=== PATIENT | male | born 1930 | race Two or more races ===

== ENCOUNTER 2017-10-15 14:02 | Emergency (ER) | payer SELFPAY ==
[2017-10-15 15:05] VITALS: BP 00/00; BMI 18.3
--- NOTE | 2017-10-15 15:06 | PDOC ---
History of Present Illness - General Chief Complaint: Cardiac Arrest Stated Complaint: CARDIAC ARREST Time Seen by Provider: 10/15/17 14:17 - History of Present Illness Initial Comments: 10/15/17 15:01 The patient is an 86 year old male with a significant PMH of chronic AFib (on Digoxin/Rivaroxaban), past NE, COPD, pulmonary tuberculosis, HTN, diabetes, past stroke who presents to the emergency department s/p cardiac arrest approximately 1hr TUG CAPTAIN to ED. As per the patients daughter Mimi Syed, she was notified by a family member about 1 hour ago that it did not appear as if the patient was breathing and went upstairs to check on him. Upon reaching the patient, she reports she noticed he was not breathing with no pulse and subsequently started CPR and called 911. As per EMS, the patient was found to be in cardiac arrest in asystole with a critically high finger stick in the field with blown pupils. Pt was put on the SOUMYA machine, given epi, bicarb and 1 g of calcium. About 20 minutes into the patients arrest/resusitation, his rhythm was found to be Vfib and EMS gave 300 mg of Amiodarone. He continued to be in VFib for 2 rounds of CPR and was defibrillated twice. After this intervention the patient was found to be in asystole again during subsequent rhythm check. In total, the patient was given 5 rounds of Epi, 1 g of Calcium, 1 amp of sodium bicarbonate, and 300 mg of Amiodarone in the field. Down time in the field was approx 47 mins (unknown how long he was down prior to family finding him) On arrival to ED, the patient was found to be in asystole. ET tube placement was confirmed via glidescope. The patients end tidal CO2 was 5. The patient was in rigor mortis, and bedside US revealed cardiac standstill. The patient was given 2 g of magnesium and CPR was continued for another round, at which point the patient continued to be in asystole and cardiac standstill. Time of was called at 14:09. The patients daughter Mimi Syed was notified and counseled, after which she was escorted to the bedside. Allergies: Not reported. Surgical history: Not reported. Social history: Former heavy smoker. No reported alcohol or drug use. PCP: None in the [place], daughter states he recieves care in the ED when he is sick in the [place]. Past History - Past Medical History Allergies/Adverse Reactions: Allergies Allergy/AdvReac Type Severity Reaction Status Date / Time No Allergy Information Allergy Verified 10/15/17 15:04 Available Home Medications: Ambulatory Orders Unobtainable [Unobtainable] 10/15/17 Review of Systems - Review of Systems Comments:: 10/15/17 15:01 Unable to perform. *Physical Exam - Physical Exam Comments: 10/15/17 15:01 GENERAL: unresponsive, intubated, cachectic in rigor mortis HEAD: No signs of trauma EYES: pupils blown b/l NECK: Normal ROM, supple, no lymphadenopathy, JVD, or masses LUNGS: Breath sounds equal, clear to auscultation bilaterally. No wheezes, and no crackles HEART: asystole ABDOMEN: Soft, very thin NEUROLOGICAL: unresponsive, blown pupils, in rigor mortis Bedside sono: cardiac standstill Medical Decision Making - Critical Care Time Total Critical Care Time (minutes): 30 Critical Care Statement: The care of this patient involved high complexity decision making to prevent further life threatening deterioration of the patient 's condition and/or to evaluate & treat vital organ system(s) failure or risk of failure. - Medical Decision Making 10/15/17 15:02 86-year-old male presents emergency Department in cardiac arrest. Down time approximately 47 minutes, although family does not know how long he was not breathing for. On arrival the patient is in asystole with cardiac standstill on ultrasound and in rigor mortis on exam. Patient was given 2G magnesium and 1 round of CPR was continued, patient continued to be in asystole. Time of 1409, family notified. ME declined case, case number was [id number] (spoke with Hari Coates). *DC/Admit/Observation/Transfer Diagnosis at time of Disposition: Cardiac arrest - Discharge Dispostion Disposition: - Referrals - Patient Instructions - Post Discharge Activity - Attestations Physician Attestion: 10/15/17 15:06 I, Dr. Alicia Chapin MD, attest that this document has been prepared under my direction and personally reviewed by me in its entirety. I further attest, that it accurately reflects all work, treatment, procedures and medical decision -making performed by me.
== END 2017-10-15 16:45 | disposition expired ==
LOC: JER 14:02
PROC: 5A12012 Performance of Cardiac Output, Single, Manual (ICD-10-PCS; principal; 2017-10-15)
DX: I46.9 Cardiac arrest, cause unspecified (principal); I48.2 Chronic atrial fibrillation; Z79.01 Long term (current) use of anticoagulants; I25.2 Old myocardial infarction; I10 Essential (primary) hypertension; J44.9 Chronic obstructive pulmonary disease, unspecified; E11.9 Type 2 diabetes mellitus without complications; Z86.73 Personal history of transient ischemic attack (TIA), and cerebral infarction without residual deficits
CPT/HCPCS: 82962; 99283-25